=== PATIENT | female | born 1995 | race African-American/Black ===

== ENCOUNTER 2021-07-03 13:42 | Outpatient (CLI) | payer OTHER | END 2021-07-03 13:43 | disposition home or self-care (01) | LOC: CSHULT 13:42 | PROVIDERS: ATTEND Family Medicine | DX: O09.892 Supervision of other high risk pregnancies, second trimester (principal); Z3A.21 21 weeks gestation of pregnancy | CPT/HCPCS: 76805 ==

== ENCOUNTER 2021-10-04 13:37 | Outpatient (CLI) | payer OTHER | END 2021-10-04 13:38 | disposition home or self-care (01) | LOC: CSHULT 13:37 | PROVIDERS: ATTEND Family Medicine | DX: O36.5930 Maternal care for other known or suspected poor fetal growth, third trimester, not applicable or unspecified (principal); Z3A.32 32 weeks gestation of pregnancy | CPT/HCPCS: 76816 ==

== ENCOUNTER 2021-10-19 09:35 | Outpatient (CLI) | payer OTHER ==
[2021-10-19 14:40] LABS: Hemoglobin 12.3 g/dL (12.0-15.5); Mean Corpuscular HGB CONC 33.1 g/dL (32.0-36.0); Mean Corpuscular Hemoglobin 29.7 pg (27.0-33.0); Mean Corpuscular Volume 89.9 fl (81.6-98.3); Mean Platelet Volume 11.5 fl (7.4-10.4); Platelet Count 239 10x3/uL (150-450); Red Blood Cell (RBC) Count 4.14 10x6/uL (3.90-5.03); White Blood Cell (WBC) Count 5.2 10x3/uL (3.5-10.5)
[2021-10-19 15:09] LABS: Hep B Surf Ag Non-Reactive S/CO (NonReactive)
[2021-10-19 15:10] LABS: HBSAg Index 0.18 S/CO (0-0.99); Syphilis Antibody Nonreactive (Nonreactive); Syphilis Antibody Index 0.18 S/CO (<1.00 Non-Reactive)
[2021-10-20 00:07] LABS: SARS-CoV-2 PCR by NAA Not Detected (NotDetected)
== END 2021-10-19 09:36 | disposition home or self-care (01) ==
LOC: CSHLAB 09:35
PROVIDERS: ATTEND Family Medicine
DX: Z01.812 Encounter for preprocedural laboratory examination (principal); Z20.822 Contact with and (suspected) exposure to COVID-19
CPT/HCPCS: 85027; 86780; 86900; 86901; 87340; U0003; U0005

== ENCOUNTER 2021-10-22 07:52 | Inpatient (IN) | payer OTHER ==
[2021-10-22] MEDS ORDERED: Bicitra 30 ML UDCUP PO PRN (10:27)
[2021-10-22] MEDS ORDERED: Lactated Ringer's 1,000 ML IV SCH (10:27)
[2021-10-22] MEDS ORDERED: Famotidine/PF 20 mg/2ml Vial SLOW IVP PRN (10:27)
[2021-10-22] MEDS ORDERED: ceFAZolin 2 GM/Dextrose 50 ML 2 GM in Premix Bag 1 BAG IVPB SCH (10:27)
[2021-10-22] MEDS ORDERED: hydrALAZINE 20 MG/ML VIAL SLOW IVP PRN ×2 (10:27→16:56)
[2021-10-22] MEDS ORDERED: Ondansetron PF 4 MG/2 ML Vial IVP PRN ×3 (10:27→16:56)
[2021-10-22] MEDS ORDERED: Promethazine HCl 25 MG/ML VIAL IM PRN ×3 (10:27→16:56)
[2021-10-22 10:30] VITALS: BMI 29.8
[2021-10-22] MEDS ORDERED: Ondansetron HCl/PF 4 MG/2 ML Vial IVP PRN (10:52)
[2021-10-22] MEDS ORDERED: HYDROmorphone 2 MG/ML VIAL SLOW IVP PRN (10:52)
[2021-10-22] MEDS ORDERED: Hydrocerin (Eucerin) Cream 120 gm Jar TOP PRN (10:52)
[2021-10-22] MEDS ORDERED: Naloxone HCl 0.4 mg/ml Vial IV PRN (10:52)
[2021-10-22] MEDS ORDERED: diphenhydrAMINE 50 MG/ML VIAL IVP PRN (10:52)
[2021-10-22] MEDS ORDERED: Meperidine HCl/PF 25 MG/ML VIAL SLOW IVP PRN (10:52)
[2021-10-22] MEDS ORDERED: Naloxone HCl 0.4 mg/ml Vial IVP PRN ×2 (10:52)
[2021-10-22] MEDS ORDERED: Fentanyl 100 MCG/2 ML VIAL SLOW IVP PRN (10:52)
[2021-10-22] MEDS ORDERED: Promethazine HCl 25 MG SUPP PR PRN (10:52)
[2021-10-22] MEDS ORDERED: Ketorolac Tromethamine 30 MG/ML VIAL IVP PRN (10:52)
[2021-10-22] MEDS ORDERED: Ketorolac Tromethamine 30 MG/ML VIAL IVP SCH (11:00)
[2021-10-22] MEDS ORDERED: Communication Order-Pharmacy FS SCH (11:00)
[2021-10-22] MEDS ORDERED: Morphine PF 10 MG/10 ML VIAL ONE (11:44)
[2021-10-22] MEDS ORDERED: Fentanyl 100 MCG/2 ML VIAL ONE (11:44)
[2021-10-22] MEDS ORDERED: Ondansetron PF 4 MG/2 ML Vial ONE (11:45)
[2021-10-22] MEDS ORDERED: Ketorolac Tromethamine 30 MG/ML VIAL ONE (11:45)
[2021-10-22] MEDS ORDERED: Oxytocin 10 UNITS/ML VIAL ONE (11:45)
[2021-10-22] MEDS ORDERED: Phenylephrine 10 MG/ML VIAL ONE (11:45)
[2021-10-22] MEDS ORDERED: Methylergonovine 0.2 MG/ML VIAL ONE (12:41)
[2021-10-22] MEDS ORDERED: NS w/ Oxytocin 30 units 500 ML ONE (14:08)
[2021-10-22] MEDS ORDERED: Meperidine HCl/PF 25 MG/ML VIAL SLOW IVP SCH (15:10)
[2021-10-22] MEDS ORDERED: Meperidine HCl/PF 25 MG/ML VIAL ONE (15:17)
[2021-10-22] MEDS ORDERED: Meperidine HCl/PF 25 MG/ML VIAL IM PRN ×2 (16:56→17:16)
[2021-10-22] MEDS ORDERED: Simethicone Chewable 80 MG TAB PO PRN (16:56)
[2021-10-22] MEDS ORDERED: NS w/ Oxytocin 30 units 500 ML IV SCH (16:56)
[2021-10-22] MEDS ORDERED: Boostrix 0.5 ML (Tdap) VIAL IM ONE (16:56)
[2021-10-22] MEDS ORDERED: diphenhydrAMINE 25 MG CAP PO PRN (16:56)
[2021-10-22] MEDS ORDERED: Lanolin Ointment 7 GM TUBE TOP PRN (16:56)
[2021-10-22] MEDS: Ketorolac Tromethamine 30 MG/ML VIAL IVP SCH (18:42)
[2021-10-22] MEDS: Ferrous Sulfate 325 MG TAB PO SCH (22:31)
[2021-10-22] MEDS: Docusate 100 MG CAP PO SCH (22:31)
[2021-10-23] MEDS: Ketorolac Tromethamine 30 MG/ML VIAL IVP SCH ×2 (00:19→05:45)
[2021-10-23 04:53] LABS: Hemoglobin 11.3 g/dL (12.0-15.5); Mean Corpuscular HGB CONC 34.3 g/dL (32.0-36.0); Mean Corpuscular Hemoglobin 30.1 pg (27.0-33.0); Mean Corpuscular Volume 87.5 fl (81.6-98.3); Mean Platelet Volume 10.5 fl (7.4-10.4); Platelet Count 191 10x3/uL (150-450); RBC Distribution Width 11.9 % (11.5-14.5); Red Blood Cell (RBC) Count 3.76 10x6/uL (3.90-5.03); White Blood Cell (WBC) Count 7.6 10x3/uL (3.5-10.5)
[2021-10-23] MEDS: Ferrous Sulfate 325 MG TAB PO SCH ×2 (07:43→20:50)
[2021-10-23] MEDS: Prenatal Vitamin 1 TAB PO SCH (08:18)
[2021-10-23] MEDS: Docusate 100 MG CAP PO SCH ×2 (08:18→20:50)
[2021-10-23] MEDS: Ibuprofen 800 MG TAB PO SCH ×2 (14:37→20:49)
[2021-10-23] MEDS: HYDROcodone/Acetaminophen 5/325 mg Tablet PO PRN (18:00)
[2021-10-24] MEDS: HYDROcodone/Acetaminophen 5/325 mg Tablet PO PRN ×4 (01:20→17:22)
[2021-10-24] MEDS: Ibuprofen 800 MG TAB PO SCH ×3 (04:55→21:48)
[2021-10-24] MEDS: Ferrous Sulfate 325 MG TAB PO SCH ×2 (07:28→21:49)
[2021-10-24] MEDS: Prenatal Vitamin 1 TAB PO SCH (08:47)
[2021-10-24] MEDS: Docusate 100 MG CAP PO SCH ×2 (08:47→21:48)
[2021-10-25] MEDS: HYDROcodone/Acetaminophen 5/325 mg Tablet PO PRN (03:10)
[2021-10-25] MEDS: Ibuprofen 800 MG TAB PO SCH (05:09)
[2021-10-25] MEDS: Ferrous Sulfate 325 MG TAB PO SCH (07:34)
[2021-10-25 07:56] VITALS: BP 141/87; TEMP 97.7
[2021-10-25] MEDS: Prenatal Vitamin 1 TAB PO SCH (09:04)
[2021-10-25] MEDS: Docusate 100 MG CAP PO SCH (09:04)
== END 2021-10-25 14:25 | disposition home or self-care (01) | DRG 788 ==
LOC: CSHLD 09:40 → CSHPP 16:30
PROVIDERS: ADMIT Family Medicine; ATTEND Family Medicine
PROC: 10D00Z1 Extraction of Products of Conception, Low, Open Approach (ICD-10-PCS; principal; 2021-10-22)
DX: O34.211 Maternal care for low transverse scar from previous cesarean delivery (principal); Z37.0 Single live birth; Z3A.37 37 weeks gestation of pregnancy; O36.5930 Maternal care for other known or suspected poor fetal growth, third trimester, not applicable or unspecified; Z90.49 Acquired absence of other specified parts of digestive tract
CPT/HCPCS: 36415; 51702; 85027; 86850; 86900; 86901; 88307; J1885; J2175; J2210; J2274; J2370; J2405; J2590; J3010